=== PATIENT | male | born 1960 | race African-American/Black ===

== ENCOUNTER 2017-02-06 03:02 | Emergency (ER) | payer OTHER ==
[~2017-02-06] VITALS: Ht 175.3 cm; Wt 118.5 kg
[2017-02-06] MEDS ORDERED: FURO40TA6 PO (04:00)
[2017-02-06] MEDS ORDERED: INSU100C5 SQ-INSULIN (04:00)
[2017-02-06] MEDS ORDERED: HYDR-3241 PO (04:00)
[2017-02-06] MEDS ORDERED: METO50TA82 PO (04:00)
[2017-02-06] MEDS ORDERED: INSU100V8 SQ (04:00)
[2017-02-06] MEDS ORDERED: TEST2.5G5 INJ (04:00)
[2017-02-06] MEDS ORDERED: POTA10CA PO (04:00)
[2017-02-06] MEDS ORDERED: ASPI-614 PO (04:00)
[2017-02-06] MEDS ORDERED: LISI-170 PO (04:00)
[2017-02-06] MEDS ORDERED: ATOR40TA78 PO (04:00)
[2017-02-06] MEDS ORDERED: GABA-827 PO (04:00)
[2017-02-06] MEDS ORDERED: LORazepam 1MG TABLET PO ONE (04:00)
[2017-02-06 04:08] LABS: BLOOD UREA NITROGEN 21 mg/dL (7-18)
[2017-02-06 04:13] LABS: IS PT STATUS REG ER OR PRE ER? YES
[2017-02-06 04:45] VITALS: BP 117/65
[2017-02-06] MEDS ORDERED: LORazepam 1MG TABLET ONE (04:45)
== END 2017-02-06 05:18 | disposition home or self-care (01) ==
LOC: ED 04:17
DX: S29.012A Strain of muscle and tendon of back wall of thorax, initial encounter (principal); I10 Essential (primary) hypertension; E11.9 Type 2 diabetes mellitus without complications; I25.10 Atherosclerotic heart disease of native coronary artery without angina pectoris; Z95.1 Presence of aortocoronary bypass graft; X58.XXXA Exposure to other specified factors, initial encounter; Y93.89 Activity, other specified; Y92.89 Other specified places as the place of occurrence of the external cause; Y99.9 Unspecified external cause status
CPT/HCPCS: 36415; 71010; 80048; 82040; 84484; 85025; 93005; 99285

== ENCOUNTER → 2018-02-22 | Outpatient (CLI) | payer OTHER ==
[~2018-02-22] MED LIST: ASPI-614 PO; ATOR40TA78 PO; FURO40TA6 PO; GABA-827 PO; HYDR-3241 PO; INSU100C5 SQ-INSULIN; INSU100V8 SQ; LISI-170 PO; METO50TA82 PO; POTA10CA PO; REGADENOSON 0.4 MG/5 ML SYRINGE ONE; TEST2.5G5 INJ
== END | disposition home or self-care (01) ==
LOC: RAD 07:30
PROVIDERS: ATTEND Internal Medicine Cardiovascular Disease
DX: I11.9 Hypertensive heart disease without heart failure (principal); I34.0 Nonrheumatic mitral (valve) insufficiency; E11.9 Type 2 diabetes mellitus without complications
CPT/HCPCS: 78452; 93017; 93306; A9502; J2785

== ENCOUNTER 2018-03-31 23:30 | Emergency (ER) | payer OTHER ==
[~2018-03-31] VITALS: Ht 175.3 cm; Wt 120.5 kg
[~2018-03-31 23:30] MED LIST changes: -REGADENOSON 0.4 MG/5 ML SYRINGE ONE
[2018-03-31] MEDS ORDERED: PIPERACILLIN/TAZO/PMX 3.375GM 50 ML ONE (23:32)
[2018-04-01] MEDS ORDERED: HYDROmorphone 2 MG/ML, 1ML IVPush STA (00:39)
[2018-04-01] MEDS ORDERED: HYDROmorphone 2 MG/ML, 1ML ONE (00:43)
[2018-04-01 02:34] VITALS: BP 126/74
== END 2018-04-01 02:36 | disposition home or self-care (01) ==
LOC: ED 23:59
DX: G89.18 Other acute postprocedural pain (principal); Z88.6 Allergy status to analgesic agent
CPT/HCPCS: 93971; 96374; 99284; J1170

== ENCOUNTER 2018-04-11 06:56 | Emergency (ER) | payer OTHER ==
[~2018-04-11] VITALS: Ht 175.3 cm; Wt 113.6 kg
[2018-04-11] MEDS ORDERED: ONDANSETRON ODT 4 MG PO ONE (07:30)
[2018-04-11] MEDS ORDERED: SODIUM CHLORIDE FLUSH 10ML SYR IVF ONE (07:30)
[2018-04-11] MEDS ORDERED: MORPHINE SULFATE 4 MG/ML, 1ML ONE ×2 (08:35→10:15)
[2018-04-11] MEDS ORDERED: ONDANSETRON ODT 4 MG ONE (08:35)
[2018-04-11] MEDS: MORPHINE SULFATE 4 MG/ML, 1ML IVPush PRN ×2 (08:41→10:18)
[2018-04-11 08:53] LABS: MEAN CORPUSCULAR HEMOGLOBIN 28.5 pg (27.5-34.5); MEAN CORPUSCULAR HGB CONC 33.3 g/dL (33.2-36.2); MEAN CORPUSCULAR VOLUME 85.8 fL (81-97); MEAN PLATELET VOLUME 7.3 fL (7.4-10.4); PLATELET COUNT 633 x10^3/uL (130-400); RED BLOOD COUNT 3.97 x10^6/uL (4.38-5.82)
[2018-04-11 09:06] LABS: ALANINE AMINOTRANSFERASE 48 U/L (12-78); ALBUMIN 2.9 g/dL (3.4-5.0); ANION GAP 12 mmol/L (5-15); CHLORIDE 96 mmol/L (98-107); CREATININE 1.59 mg/dL (0.7-1.3)
[2018-04-11 09:12] LABS: ALKALINE PHOSPHATASE 81 U/L (45-117); BILIRUBIN,TOTAL 2.7 mg/dL (0.2-1.0)
[2018-04-11 09:14] LABS: HCT (SEDRATE) 33.8 % (39.2-51.8)
[2018-04-11 09:27] LABS: MICROSCOPIC NOT IND
[2018-04-11 09:29] LABS: CULTURE INDICATED? NO
[2018-04-11] MEDS ORDERED: SODIUM CHLORIDE 0.9% 1,000ML IVBOLUS ONE (10:00)
[2018-04-11] MEDS ORDERED: RANI150C PO (10:14)
[2018-04-11] MEDS ORDERED: SITA100T PO (10:14)
[2018-04-11 10:17] LABS: BASOPHILS # (AUTO) 0.04 x10^3/uL (0-0.1); BASOPHILS % (AUTO) 0 % (0-1); EOSINOPHILS # (AUTO) 0.25 x10^3/uL (0-0.4); EOSINOPHILS % (AUTO) 1 % (1-7); LYMPHOCYTES # (AUTO) 2.07 x10^3/uL (1-3.4); LYMPHOCYTES % (AUTO) 11 % (22-44); MD SCAN; MONOCYTES # (AUTO) 1.73 x10^3/uL (0.2-0.8); MONOCYTES % (AUTO) 9 % (2-9); NEUTROPHILS # (AUTO) 14.31 x10^3/uL (1.8-6.8); NEUTROPHILS % (AUTO) 78 % (42-75)
[2018-04-11] MEDS ORDERED: DEXTROSE 50%, 50ML SYRINGE IVPush PRN (11:00)
[2018-04-11] MEDS ORDERED: LABETALOL 5MG/ML, 20ML IVPush PRN (11:00)
[2018-04-11] MEDS ORDERED: GLUCAGON 1 MG IM PRN (11:00)
[2018-04-11] MEDS ORDERED: ACETAMINOPHEN 325 MG TABLET PO PRN (11:00)
[2018-04-11] MEDS ORDERED: DEXTROSE 4 GM TAB.CHEW PO PRN (11:00)
[2018-04-11] MEDS ORDERED: POLYETHYLENE GLYCOL 17 GM PACKET PO PRN (11:00)
[2018-04-11] MEDS ORDERED: morphine SULFATE 10 MG/ML, 1ML IVPush PRN (11:00)
[2018-04-11] MEDS ORDERED: ONDANSETRON ODT 4 MG PO PRN (11:00)
[2018-04-11] MEDS ORDERED: INSULIN REGULAR 100 UNITS/ML, 3ML VIAL SQ-INSULIN SCH ×2 (11:00→17:00)
[2018-04-11] MEDS ORDERED: DOCUSATE 100 MG CAPSULE PO PRN (11:00)
[2018-04-11] MEDS ORDERED: SENNA/DOCUSATE TABLET PO SCH (11:00)
[2018-04-11] MEDS ORDERED: ONDANSETRON 2MG/ML, 2ML IVPush PRN (11:00)
[2018-04-11] MEDS ORDERED: TRAZODONE 50MG TABLET PO PRN (11:00)
[2018-04-11] MEDS ORDERED: CEFTRIAXONE PMX 1GM/50ML 50 ML ONE (11:29)
[2018-04-11] MEDS ORDERED: SULFAMETH./TRIMETHOPRIM DS 800MG/160MG TABLET ONE (11:29)
[2018-04-11] MEDS ORDERED: CEFTRIAXONE 1,000 MG in SODIUM CHLORIDE 0.9% 50 ML IV ONE (11:30)
[2018-04-11] MEDS ORDERED: SULFAMETH./TRIMETHOPRIM DS 800MG/160MG TABLET PO ONE (11:30)
[2018-04-11 12:00] VITALS: BP 129/82
[2018-04-11 12:56] LABS: HEMOGLOBIN A1C 7.1 % (4.2-6.3)
[2018-04-11] MEDS ORDERED: INSULIN GLARGINE 100 UNITS/ML, PEN SQ-INSULIN SCH (21:00)
[2018-04-11] MEDS ORDERED: SODIUM CHLORIDE FLUSH 10ML SYR IVF SCH (21:00)
[2018-04-11] MEDS ORDERED: METOPROLOL TARTRATE 50 MG TABLET PO SCH (21:00)
[2018-04-11] MEDS ORDERED: ATORVASTATIN 40 MG TABLET PO SCH (21:00)
[2018-04-12] MEDS ORDERED: LISINOPRIL 20 MG TABLET PO SCH (09:00)
[2018-04-12] MEDS ORDERED: ASPIRIN 81 MG TABLET EC PO SCH (09:00)
[2018-04-12] MEDS ORDERED: FAMOTIDINE 20 MG TABLET PO SCH (09:00)
== END 2018-04-11 12:33 | disposition home or self-care (01) ==
LOC: ED 07:07 → UNDOADMIN 10:02 → EDIP 10:02 → ED 12:33 → UNDODISIN 04-13 12:00
DX: L03.116 Cellulitis of left lower limb (principal); E86.0 Dehydration; R10.9 Unspecified abdominal pain; D72.829 Elevated white blood cell count, unspecified; I25.10 Atherosclerotic heart disease of native coronary artery without angina pectoris; E78.00 Pure hypercholesterolemia, unspecified; I10 Essential (primary) hypertension; E11.9 Type 2 diabetes mellitus without complications; Z96.652 Presence of left artificial knee joint; Z95.1 Presence of aortocoronary bypass graft
CPT/HCPCS: 36415; 73564; 80053; 81003; 82945; 83036; 83690; 84157; 85025; 85651; 86140; 87070; 87075; 87205; 89051; 89060; 93971; 96365; 96375; 99285; J0696; J7030; Q0162; 96374